=== PATIENT | male | born 1990 | race Hispanic/Latino ===

== ENCOUNTER 2021-09-25 16:24 | Outpatient (CLI) | payer OTHER ==
[2021-09-26 09:53] LABS: SARS-CoV-2 PCR by NAA Not Detected (NotDetected)
== END 2021-09-25 16:25 | disposition home or self-care (01) ==
LOC: LABBT 16:24
PROVIDERS: ATTEND Orthopaedic Surgery
DX: Z01.812 Encounter for preprocedural laboratory examination (principal); S82.851A Displaced trimalleolar fracture of right lower leg, initial encounter for closed fracture; Z20.822 Contact with and (suspected) exposure to COVID-19
CPT/HCPCS: U0003; U0005

== ENCOUNTER 2021-09-28 07:51 | Day surgery (SDC) | payer OTHER ==
[2021-09-25 15:46] VITALS: BMI 27.1
[2021-09-28] MEDS ORDERED: Acetaminophen 500 MG TAB ONE (08:18)
[2021-09-28] MEDS ORDERED: Fentanyl 100 MCG/2 ML VIAL ONE ×2 (08:22→12:00)
[2021-09-28] MEDS ORDERED: Dexamethasone 4 mg/ml Vial ONE (08:22)
[2021-09-28] MEDS ORDERED: Midazolam HCl 2 mg/2 ml Vial ONE (08:22)
[2021-09-28] MEDS ORDERED: Bupivacaine HCl 0.5%/Epinephrine 1:200,000/PF 30 ml Vial ONE (10:18)
[2021-09-28] MEDS ORDERED: Ondansetron PF 4 MG/2 ML Vial ONE (10:18)
[2021-09-28] MEDS ORDERED: PROPOFOL 200 MG/20 ML VIAL ONE (10:18)
[2021-09-28] MEDS ORDERED: ePHEDrine 50 MG/ML VIAL ONE (10:18)
[2021-09-28] MEDS ORDERED: Lidocaine 1% PF 5 ML VIAL ONE (10:18)
[2021-09-28] MEDS ORDERED: Dexamethasone 20 MG/5 ML VIAL ONE ×2 (10:18)
[2021-09-28] MEDS ORDERED: ceFAZolin 2 GM/Dextrose 50 ML IVPB ONE (10:20)
== END 2021-09-28 13:53 | disposition home or self-care (01) ==
LOC: SDC 07:51
PROVIDERS: ATTEND Orthopaedic Surgery
PROC: 0QSJ04Z Reposition Right Fibula with Internal Fixation Device, Open Approach (ICD-10-PCS; principal; 2021-09-28)
PROC: 0QSG04Z Reposition Right Tibia with Internal Fixation Device, Open Approach (ICD-10-PCS; principal; 2021-09-28)
DX: S82.851A Displaced trimalleolar fracture of right lower leg, initial encounter for closed fracture (principal); X50.1XXA Overexertion from prolonged static or awkward postures, initial encounter
CPT/HCPCS: 76000; C1713; J0690; J1100; J2250; J2405; J2704; J3010; J3490